=== PATIENT | female | born 1975 | race Caucasian/White ===

== ENCOUNTER 2025-06-03 22:23 | Emergency (ER) | payer OTHER, SELFPAY ==
[2025-06-03 22:23] VITALS: BP 111/71; PULSE 60; RESP 17; TEMP 36.8; O2SAT 99
--- NOTE | 2025-06-03 22:55 | RAD_ITS ---
PROCEDURE: KNEE 4 OR MORE VIEWS 06/03/2025 REASON FOR EXAM: FALL TECHNIQUE: Procedure Code: RADKN Modality: DX Procedure: KNEE 4 OR MORE VIEWS Laterality: FINDINGS: No evidence of acute fracture or dislocation. The joint spaces are maintained. Small suprapatellar knee joint effusion. No knee joint effusion. RAD/Knee 4 or More Views IMPRESSION: No acute osseous abnormalities. Reading Location: [id number]
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
[2025-06-04 00:52] VITALS: BP 115/76; PULSE 67; RESP 18; TEMP 36.8; O2SAT 99
== END 2025-06-04 00:52 | disposition home or self-care (01) ==
PROVIDERS: Emergency Provider Emergency Medicine; Visit Provider Emergency Medicine
DX: M25.462 Effusion, left knee (principal); Y04.8XXA Assault by other bodily force, initial encounter; F17.210 Nicotine dependence, cigarettes, uncomplicated; R26.2 Difficulty in walking, not elsewhere classified; Z90.49 Acquired absence of other specified parts of digestive tract; Z90.710 Acquired absence of both cervix and uterus
CPT/HCPCS: 73564; 96374; 96375; 99284; A4216; J2405